=== PATIENT | male | born 1995 | race Two or more races ===

== ENCOUNTER 2019-01-13 12:24 | Emergency (ER) | payer SELFPAY ==
[~2019-01-13] VITALS: Ht 175.3 cm; Wt 62.0 kg
[2019-01-13 14:42] VITALS: BP 112/76
== END 2019-01-13 15:23 | disposition left against medical advice (07) ==
LOC: ED 15:17
DX: E86.0 Dehydration (principal); D72.829 Elevated white blood cell count, unspecified; R10.33 Periumbilical pain; R11.2 Nausea with vomiting, unspecified
CPT/HCPCS: 36415; 80053; 83690; 85025; 96361; 96372; 96374; 99283; J2765; J3486; J7030